=== PATIENT | female | born 1945 | race Caucasian/White ===

== ENCOUNTER → 2016-06-20 11:37 | Outpatient (CLI) | payer MEDICARE, BC ==
[2016-01-01 07:31] VITALS: BMI 42.9
[~2016-06-20 11:37] MED LIST: ATIVAN2 MG PO; CALCIUM 600+D T1 TA1 PO; FEMARA2.5 MG PO; FOLATE0.4 MG PO; FOLIC ACID0.8 MG PO; GLUCOPHAGE500 MG PO; HCTZ25 MG PO; LASIX20 MG PO; MOBIC7.5 MG PO; NEURONTIN 300300 MG PO; NORCO 7.5/325 T1 TA1 PO; TOPROL XL100 MG PO; VITAMIN B-1250 MCG PO
== END | disposition home or self-care (01) ==
LOC: D.NM 11:37
DX: C50.419 Malignant neoplasm of upper-outer quadrant of unspecified female breast (principal); T82.868A Thrombosis due to vascular prosthetic devices, implants and grafts, initial encounter

== ENCOUNTER 2016-10-29 11:28 | Outpatient (CLI) | payer MEDICARE, BC ==
[2016-01-01 07:31] VITALS: BMI 42.9
== END 2016-10-29 11:52 ==
LOC: D.MAMMO 11:28
DX: Z85.3 Personal history of malignant neoplasm of breast (principal); Z12.31 Encounter for screening mammogram for malignant neoplasm of breast

== ENCOUNTER → 2017-07-22 15:20 | Outpatient (CLI) | payer MEDICARE, BC ==
[2016-01-01 07:31] VITALS: BMI 42.9
== END | disposition home or self-care (01) ==
LOC: D.MAMMO 02-05 09:00 → D.US 02-05 10:00 → D.MAMMO 06-15 09:30 → D.US 06-15 10:30 → D.MAMMO 10:30
DX: D49.3 Neoplasm of unspecified behavior of breast (principal)